=== PATIENT | female | born 1975 | race Caucasian/White ===

== ENCOUNTER 2021-12-13 10:35 | Emergency (ER) | payer SELFPAY ==
[2021-12-13] MEDS ORDERED: Fluorescein Opthalmic Strip ONE (11:43)
[2021-12-13] MEDS ORDERED: Tetracaine 0.5% PF 4 ML BOT ONE (11:43)
== END 2021-12-13 12:29 | disposition home or self-care (01) ==
LOC: MADERS 10:35
DX: L03.213 Periorbital cellulitis (principal); I10 Essential (primary) hypertension; F17.210 Nicotine dependence, cigarettes, uncomplicated; Z79.899 Other long term (current) drug therapy
CPT/HCPCS: 99283